=== PATIENT | female | born 1940 | race Caucasian/White ===

== ENCOUNTER 2022-06-03 12:17 | Outpatient (CLI) | payer MEDICARE | END 2022-06-03 12:18 | disposition home or self-care (01) | LOC: TBSIIMAG 12:17 | PROVIDERS: ATTEND Neurological Surgery | DX: M43.16 Spondylolisthesis, lumbar region (principal); M47.816 Spondylosis without myelopathy or radiculopathy, lumbar region; M51.36 Other intervertebral disc degeneration, lumbar region | CPT/HCPCS: 72148 ==

== ENCOUNTER 2022-07-28 05:52 | Observation (INO) | payer MEDICARE ==
[2022-07-27 09:35] VITALS: BMI 26.6
[2022-07-28] MEDS ORDERED: Vancomycin 1 GM VIAL ONE (06:34)
[2022-07-28] MEDS ORDERED: SUGAMMADEX SODIUM 200 MG/2 ML VIAL ONE ×2 (06:44→08:43)
[2022-07-28] MEDS ORDERED: Fentanyl 250 MCG/5 ML VIAL ONE (06:44)
[2022-07-28 06:55] LABS: #Basophils 0.1 thou/uL (0.0-0.2); #Eosinphils 0.3 thou/uL (0.0-0.7); #Lymphocytes 2.8 thou/uL (1.20-3.40); #Monocytes 0.9 thou/uL (0.11-0.59); #Neutrophils 4.9 thou/uL (1.40-6.50); %Basophils 0.8 % (0.0-1.0); %Eosinophils 3.5 % (0.0-10.0); %Neutrophils 54.7 % (42.0-75.0); Hemoglobin 13.9 g/dL (12.0-16.0); Mean Corpuscular HGB CONC 33.8 g/dL (32.0-36.0); Mean Corpuscular Hemoglobin 33.9 pg (27.0-31.0); Platelet Count 196 10x3/uL (130-400); RBC Distribution Width 11.8 % (11.5-14.5); Red Blood Cell (RBC) Count 4.09 mill/uL (4.20-5.40)
[2022-07-28] MEDS ORDERED: CEFAZOLIN 2 GM VIAL ONE (07:07)
[2022-07-28] MEDS ORDERED: Sodium Chloride 0.9% 100 ML ONE (07:07)
[2022-07-28 07:12] LABS: Anion Gap 12 mmol/L (10-20); BUN (Urea Nitrogen) 21 mg/dL (9.8-20.1); Calc. Creatinine Clearance 58 mL/min (70-130); Calcium 9.8 mg/dL (7.8-10.44); Carbon Dioxide 25 mmol/L (23-31); Chloride 108 mmol/L (98-107); Estimated GFR 66; Glucose 88 mg/dL (83-110); Potassium 4.1 mmol/L (3.5-5.1); Sodium 141 mmol/L (136-145)
[2022-07-28] MEDS ORDERED: Lidocaine 4% Topical Sol 50 ML BOT ONE (07:20)
[2022-07-28] MEDS ORDERED: PHENYLEPHRINE-NS 100 MCG/ML 10 ML SYRINGE ONE (07:25)
[2022-07-28] MEDS ORDERED: Rocuronium Bromide 10 MG/ML (10ML VIAL) ONE (07:25)
[2022-07-28] MEDS ORDERED: Dexamethasone 20 MG/5 ML VIAL ONE (07:25)
[2022-07-28] MEDS ORDERED: Ondansetron PF 4 MG/2 ML Vial ONE ×2 (07:25)
[2022-07-28] MEDS ORDERED: PROPOFOL 200 MG/20 ML VIAL ONE (07:25)
[2022-07-28 07:43] LABS: SARS-CoV-2 NAA Rapid Test Not Detected (NotDetected)
[2022-07-28] MEDS ORDERED: Milk Of Magnesia 30 ML UDCUP PO PRN (08:33)
[2022-07-28] MEDS ORDERED: Acetaminophen 325 MG TAB PO PRN (08:33)
[2022-07-28] MEDS ORDERED: HYDROcodone/Acetaminophen 7.5/325 mg Tablet PO PRN ×2 (08:33)
[2022-07-28] MEDS ORDERED: diphenhydrAMINE 25 MG CAP PO PRN (08:33)
[2022-07-28] MEDS ORDERED: Promethazine 25 MG TAB PO PRN (08:33)
[2022-07-28] MEDS ORDERED: traMADol HCl 50 MG TAB PO PRN ×2 (08:33)
[2022-07-28] MEDS ORDERED: Cyclobenzaprine 10 MG TAB PO PRN (08:33)
[2022-07-28] MEDS ORDERED: Morphine 2 MG/ML VIAL SLOW IVP PRN (08:33)
[2022-07-28] MEDS ORDERED: Ondansetron PF 4 MG/2 ML Vial IVP PRN (08:33)
[2022-07-28] MEDS ORDERED: Mag-Al 1200 mg/1200 mg/30 ML UDCUP PO PRN (08:33)
[2022-07-28] MEDS ORDERED: FENTANYL 50 MCG/ML 1 ML VIAL ONE (09:16)
[2022-07-28] MEDS: Lisinopril 10 MG TAB PO SCH (12:56)
[2022-07-28] MEDS: CEFAZOLIN 2 GM in Sodium Chloride 0.9% 100 ML IVPB SCH ×2 (16:17→23:00)
[2022-07-28] MEDS: Sodium Chloride 0.9% 1,000 ML IV SCH ×2 (19:58→22:58)
[2022-07-29] MEDS ORDERED: Levothyroxine Sodium 112 MCG TAB PO SCH (06:00)
[2022-07-29] MEDS: CEFAZOLIN 2 GM in Sodium Chloride 0.9% 100 ML IVPB SCH ×2 (06:46→14:17)
[2022-07-29] MEDS: Lisinopril 10 MG TAB PO SCH (09:11)
[2022-07-29] MEDS: Sodium Chloride 0.9% 1,000 ML IV SCH (14:17)
[2022-07-29 15:21] VITALS: BP 157/66; TEMP 97.5
== END 2022-07-29 17:05 | disposition home health service (06) ==
LOC: SDC 05:52 → SURG A 09:27
PROVIDERS: ADMIT Neurological Surgery; ATTEND Neurological Surgery
PROC: 0SG0071 Fusion of Lumbar Vertebral Joint with Autologous Tissue Substitute, Posterior Approach, Posterior Column, Open Approach (ICD-10-PCS; principal; 2022-07-28)
PROC: 0SG3071 Fusion of Lumbosacral Joint with Autologous Tissue Substitute, Posterior Approach, Posterior Column, Open Approach (ICD-10-PCS; 2022-07-28)
DX: M48.062 Spinal stenosis, lumbar region with neurogenic claudication (principal); M47.816 Spondylosis without myelopathy or radiculopathy, lumbar region; M47.817 Spondylosis without myelopathy or radiculopathy, lumbosacral region; I10 Essential (primary) hypertension; E78.5 Hyperlipidemia, unspecified; I69.351 Hemiplegia and hemiparesis following cerebral infarction affecting right dominant side; G89.4 Chronic pain syndrome; Z79.890 Hormone replacement therapy; Z79.899 Other long term (current) drug therapy; Z88.5 Allergy status to narcotic agent; Z20.822 Contact with and (suspected) exposure to COVID-19
CPT/HCPCS: 80048; 85025; 93005; 93010; 96365; 96366; C1713; G0378; J1100; J2405; J2704; J3010; J3370; J3490; U0002

== ENCOUNTER 2022-08-18 08:56 | Outpatient (CLI) | payer MEDICARE | END 2022-08-18 08:57 | disposition home or self-care (01) | LOC: TBSIIMAG 08:56 | PROVIDERS: ATTEND Neurological Surgery | DX: M48.062 Spinal stenosis, lumbar region with neurogenic claudication (principal); R29.890 Loss of height; M46.06 Spinal enthesopathy, lumbar region; M47.816 Spondylosis without myelopathy or radiculopathy, lumbar region; Z98.890 Other specified postprocedural states | CPT/HCPCS: 72100 ==